=== PATIENT | male | born 1960 | race Caucasian/White ===

== ENCOUNTER 2017-03-13 06:36 | Emergency (ER) | payer OTHER ==
[~2017-03-13] VITALS: Ht 177.8 cm; Wt 79.4 kg
[2017-03-13 06:48] VITALS: BP 132/70
== END 2017-03-13 08:47 | disposition home or self-care (01) ==
LOC: ER 06:36
DX: M16.12 Unilateral primary osteoarthritis, left hip (principal); M70.62 Trochanteric bursitis, left hip
CPT/HCPCS: 73502